=== PATIENT | female | born 1960 ===

== ENCOUNTER → 2020-02-09 13:48 | Outpatient (CLI) | payer BC, OTHER, SELFPAY ==
--- NOTE | 2020-02-09 | DI.RAD.S_ITS ---
PROCEDURE: XR ANKLE LT MIN 3V INDICATIONS: LEFT ANKLE PAIN 5TH METATARSAL TECHNIQUE: 3 views of the ankle were acquired. COMPARISON: None. FINDINGS: Bones: No fractures or dislocations. Ankle mortise is normally aligned. No suspicious bony lesions. Soft tissues: Small ankle joint effusion. Achilles tendon appears normal. IMPRESSION: Small ankle joint effusion. No acute fracture. No osseous lesion. If symptoms and/or clinical suspicion for pathology persist, further assessment with repeat, or advanced imaging (e.g., CT, MRI, or bone scan) may be helpful for further assessment. Dictated by: Eric Bailey M.D. on 02/09/2020 at 16:22 Approved by: Eric Bailey M.D. on 02/09/2020 at 16:23
--- NOTE | 2020-02-09 | DI.RAD.S_ITS ---
PROCEDURE: XR FOOT LT MIN 3V INDICATIONS: FOOT AND ANKLE PAIN TECHNIQUE: 3 views of the foot were acquired. COMPARISON: None. FINDINGS: Bones: No fractures or dislocations. No suspicious bony lesions. Soft tissues: No tibiotalar joint effusion. Achilles tendon appears normal. IMPRESSION: No acute fracture. No osseous lesion. If symptoms and/or clinical suspicion for pathology persist, further assessment with repeat, or advanced imaging (e.g., CT, MRI, or bone scan) may be helpful for further assessment. Dictated by: Eric Bailey M.D. on 02/09/2020 at 16:23 Approved by: Eric Bailey M.D. on 02/09/2020 at 16:23
== END ==
PROVIDERS: Referring Provider Physician Assistant Medical; Visit Provider Physician Assistant Medical
DX: M25.572 Pain in left ankle and joints of left foot (principal); M77.42 Metatarsalgia, left foot; M25.472 Effusion, left ankle
CPT/HCPCS: 73610; 73630